=== PATIENT | female | born 1995 | race Caucasian/White ===

== ENCOUNTER 2017-02-05 12:07 | Emergency (ER) | payer OTHER ==
[2017-02-05 14:39] VITALS: BP 111/63
== END 2017-02-05 14:39 | disposition home or self-care (01) ==
LOC: ED 12:07
DX: O26.893 Other specified pregnancy related conditions, third trimester (principal); R14.0 Abdominal distension (gaseous); J45.909 Unspecified asthma, uncomplicated; Z3A.34 34 weeks gestation of pregnancy